=== PATIENT | female | born 1955 | race Asian ===

== ENCOUNTER 2017-12-24 10:45 | Emergency (ER) | payer OTHER ==
[~2017-12-24] VITALS: Ht 160 cm; Wt 70.5 kg
[2017-12-24 10:52] LABS: GLUCOSE,POINT OF CARE 125 MG/DL (70-110)
[2017-12-24] MEDS ORDERED: CARV12 PO (10:58)
[2017-12-24] MEDS ORDERED: BENA20 PO (10:58)
[2017-12-24] MEDS ORDERED: ALEN70TA48 PO (10:58)
[2017-12-24] MEDS ORDERED: LOVA20 PO (10:58)
[2017-12-24] MEDS ORDERED: METF500T4 PO (10:58)
[2017-12-24] MEDS ORDERED: IBUPROFEN 600 MG TABLET PO ONE (11:45)
[2017-12-24] MEDS ORDERED: ACETAMINOPHEN/CODEINE 300-30 MG TABLET PO ONE (11:45)
[2017-12-24 13:05] VITALS: BP 188/68
== END 2017-12-24 13:16 | disposition home or self-care (01) ==
LOC: EMS 10:46
DX: M25.551 Pain in right hip (principal); E11.9 Type 2 diabetes mellitus without complications; I10 Essential (primary) hypertension
CPT/HCPCS: 73502; 82962; 99284